=== PATIENT | male | born 1950 | race Caucasian/White ===

== ENCOUNTER 2018-01-01 16:54 | Emergency (ER) | payer BC, OTHER ==
[2018-01-01 18:50] VITALS: BP 143/55
[2018-01-01] MEDS ORDERED: Albuterol 2.5 MG/3 ML NEB.SOL* (0.083%) INH ONE (18:59)
--- NOTE | 2018-01-01 19:02 | UC ---
UC General HPI - HPI Summary HPI Summary: pt is c/o a cough with chest congestion, fatigue and very thick yellow sputum x 4 days. denies cp and sob. - History of Current Complaint Hx Obtained From: Patient, Family/[employer] Consultant Onset/Duration: Gradual Onset Timing: Constant Pain Intensity: 0 Aggravating: lying back worsens cough Alleviating: nothing Associated Signs & Symptoms: Positive: Cough. Negative: Chest Pain, Fever, SOB , Vomiting <Tania St - Last Filed: 01/01/18 18:51> <Caro Bui - Last Filed: 01/01/18 20:01> - History of Current Complaint Stated Complaint: COUGH,CONGESTION Time Seen by Provider: 01/01/18 18:45 - Allergy/Home Medications Allergies/Adverse Reactions: Allergies Allergy/AdvReac Type Severity Reaction Status Date / Time No Known Allergies Allergy Verified 01/01/18 18:35 Home Medications: Home Medications Cholecalciferol TAB* [Vitamin D TAB*] 5,000 unit PO DAILY 01/01/18 [History Confirmed 01/01/18] Lactulose* 30 ml PO BID 01/01/18 [History Confirmed 01/01/18] Levothyroxine TAB* [Synthroid 125 MCG TAB*] 125 mcg PO DAILY 01/01/18 [History Confirmed 01/01/18] Nadolol [Corgard] 20 mg PO DAILY 01/01/18 [History Confirmed 01/01/18] Torsemide TAB* [Demadex 20 MG*] 40 mg PO DAILY 01/01/18 [History Confirmed 01/01] dilTIAZem HCl [Diltiazem 24Hr ER] 180 mg PO DAILY 01/01/18 [History Confirmed ] guaiFENesin ER TAB [Mucinex*] 600 mg PO BID PRN 01/01/18 [History Confirmed ] PMH/Surg Hx/FS Hx/Imm Hx - Additional Past Medical History Additional PMH: cirrhosis Endocrine History: Thyroid Disease, Dyslipidemia Cardiovascular History: Hypertension Respiratory History: COPD - Surgical History Surgical History: Yes Surgery Procedure, Year, and Place: left knee surgery. T&A. PARCENTESIS - Social History Lives: With Family Alcohol Use: None Substance Use Type: None Smoking Status (MU): Former Smoker When Did the Patient Quit Smoking/Using Tobacco: 18 YRS AGO - Immunization History Vaccination Up to Date: Yes <Tania St - Last Filed: 01/01/18 18:51> Review of Systems Constitutional: Negative Skin: Negative Eyes: Negative ENT: Negative Respiratory: Cough Cardiovascular: Negative Gastrointestinal: Negative Genitourinary: Negative Motor: Negative Neurovascular: Negative Musculoskeletal: Negative Neurological: Negative Psychological: Negative Is Patient Immunocompromised?: No All Other Systems Reviewed And Are Negative: Yes <Tania St - Last Filed: 01/01/18 18:51> Physical Exam Triage Information Reviewed: Yes Appearance: Well-Appearing Vital Signs: Initial Vital Signs Temp 100.3 F 01/01/18 18:41 Pulse 64 01/01/18 18:41 Resp 18 01/01/18 18:41 BP 143/55 01/01/18 18:41 Pulse Ox 99 01/01/18 18:41 Vital Signs Reviewed: Yes Eyes: Positive: Conjunctiva Clear ENT: Positive: Normal ENT inspection Neck: Positive: Supple, Nontender, No Lymphadenopathy, Other: - no jvd Respiratory: Positive: No respiratory distress, Decreased breath sounds, Other: - occasional rhonchi Cardiovascular: Positive: RRR, No Murmur, Other: - no leg edema Abdomen Description: Positive: Nontender, No Organomegaly, Soft. Negative: Distended, Guarding Bowel Sounds: Positive: Present Musculoskeletal: Positive: ROM Intact, No Edema Neurological: Positive: Alert Psychological: Positive: Age Appropriate Behavior Skin Exam: Normal <Tania St - Last Filed: 01/01/18 18:51> Vital Signs: Initial Vital Signs Temp 100.3 F 01/01/18 18:41 Pulse 64 01/01/18 18:41 Resp 18 01/01/18 18:41 BP 143/55 01/01/18 18:41 Pulse Ox 99 01/01/18 18:41 <Caro Bui - Last Filed: 01/01/18 20:01> Diagnostics - Radiology No standard instances Xray Interpretation: No Acute Changes Radiology Interpretation Completed By: Radiologist <Tania St - Last Filed: 01/01/18 18:51> Re-Evaluation - Re-Evaluation Second Eval Re-Evaluation Time: 19:38 Change: Improved - better aeration. pt notes breathing easier <Tania St - Last Filed: 01/01/18 18:51> Course/Dx - Course Course Of Treatment: hx htn, tx. non toxic, not hypoxic. hx, PE concerning for possible early pneumonia. d/w dr bui, will tx doxycycline. need for close f/ u stressed. - Differential Dx - Multi-Symptom Provider Diagnoses: cough, fever, possible early pneumonia <Tania St - Last Filed: 01/01/18 18:51> Discharge <Tania St - Last Filed: 01/01/18 18:51> <Caro Bui - Last Filed: 01/01/18 20:01> - Discharge Plan Condition: Stable Disposition: HOME Prescriptions: Albuterol HFA INHALER* [Ventolin HFA Inhaler*] 2 puff INH Q6H #1 mdi DOXYcycline CAP(*) [DOXYcycline 100MG CAP(*)] 100 mg PO BID 7 Days #14 cap Patient Education Materials: Fever in Adults (ED), Pneumonia (ED), Acute Cough (ED) Referrals: Yair Garcia MD [Primary Care Provider] - 5 Days Attestation Statement User Type: Provider - I was available for consult. This patient was seen by the advanced practice provider. The patient was not presented to, seen by, or examined by me.-Flaquita <Caro Bui - Last Filed: 01/01/18 20:01>
--- NOTE | 2018-01-01 19:34 | RAD ---
INDICATION: Cough, congestion and shortness of breath. COMPARISON: There are no prior studies available for comparison. TECHNIQUE: Dual-energy PA and lateral views of the chest were obtained. FINDINGS: The heart is within normal limits in size. Mediastinal contours appear normal. The lungs are clear. There is flattening of the diaphragms suggestive of chronic obstructive pulmonary disease. No pleural effusion is seen. IMPRESSION: FINDINGS SUGGESTIVE OF COPD, NO EVIDENCE FOR ACUTE FINDING.
== END 2018-01-01 20:02 | disposition home or self-care (01) ==
LOC: UCCORT 16:54
DX: R05 Cough (principal); R53.83 Other fatigue; K74.60 Unspecified cirrhosis of liver; E07.9 Disorder of thyroid, unspecified; E78.5 Hyperlipidemia, unspecified; I10 Essential (primary) hypertension; J44.9 Chronic obstructive pulmonary disease, unspecified; Z87.891 Personal history of nicotine dependence
CPT/HCPCS: 71046; 99202; G0463